=== PATIENT | female | born 1945 | race Caucasian/White ===

== ENCOUNTER → 2016-09-05 | Outpatient (CLI) | payer MEDICARE, BC | END | disposition home or self-care (01) | LOC: RAD.S 08-29 10:00 | DX: Z12.31 Encounter for screening mammogram for malignant neoplasm of breast (principal); C50.111 Malignant neoplasm of central portion of right female breast; I10 Essential (primary) hypertension; Z80.3 Family history of malignant neoplasm of breast ==